=== PATIENT | female | born 1990 | race Caucasian/White ===

== ENCOUNTER 2016-10-03 20:43 | Emergency (ER) | payer OTHER ==
[~2016-10-03] VITALS: Ht 167.6 cm; Wt 70.0 kg
[~2016-10-03 20:43] MED LIST: ALPR0.5T99 PO; AMPH1TAB33 PO; DARV PO; FLUO-1 PO
[2016-10-03 20:53] VITALS: BP 119/70; PULSE 89; RESP 18; TEMP 98.9; O2SAT 100
--- NOTE | 2016-10-03 20:57 | PD ---
HPI Chief Complaint: Medical Clearance Time Seen by Provider: 20:56 Travel History International Travel<30 days: No Contact w/Intl Traveler<30days: No Traveled to known affect area: No History of Present Illness HPI 26 year-old female presents to the emergency department and law enforcement custody for medical clearance. Patient got into an argument and cut her left wrist 3 times. Patient states that she has history of cutting herself as a coping mechanism. Denies suicidal or homicidal ideations. Denies any illicit drug use. She is up-to-date on her tetanus vaccination Has no other symptoms to report. [facility] Past Medical History Anxiety: Yes ?: Not LMP: on depo - states does not get her period? Social History Alcohol Use: Yes (OCCASIONAL) Tobacco Use: Yes (1PPD) Allergies-Medications (Allergen,Severity, Reaction): Coded Allergies: No Known Allergies (Verified , 10/03/16) Reported Meds & Prescriptions Reported Meds & Active Scripts Active No Active Prescriptions or Reported Medications Review of Systems Except as stated in HPI: all other systems reviewed are Neg Physical Exam Narrative GENERAL: Well-nourished female patient in no acute distress SKIN: Focused skin assessment warm/dry. Her 3 superficial lacerations on left anterior wrist, all 4 cm in length. Well approximated. Bleeding is controlled. Multiple scars on the left anterior forearm where patient has cut in the past. HEAD: Atraumatic. Normocephalic. EYES: Pupils equal and round. No scleral icterus. No injection or drainage. ENT: No nasal bleeding or discharge. Mucous membranes pink and moist. NECK: Trachea midline. No JVD. CARDIOVASCULAR: Regular rate and rhythm. No murmur appreciated. RESPIRATORY: No accessory muscle use. Clear to auscultation. Breath sounds equal bilaterally. GASTROINTESTINAL: Abdomen soft, non-tender, nondistended. Hepatic and splenic margins not palpable. MUSCULOSKELETAL: No obvious deformities. No clubbing. No cyanosis. No edema. NEUROLOGICAL: Awake and alert. No obvious cranial nerve deficits. Motor grossly within normal limits. Normal speech. Data Data Last Documented VS Vital Signs Date Time Temp Pulse Resp B/P Pulse Ox O2 Delivery O2 Flow Rate FiO2 10/03/16 20:53 98.9 89 18 119/70 100 Orders Wound Care (10/03/16 20:56) [facility] Medical Decision Making Medical Screen Exam Complete: Yes Emergency Medical Condition: Yes Medical Record Reviewed: Yes Differential Diagnosis Mood disorder versus personality disorder versus adjustment reaction disorder Laceration versus abrasion versus avulsion versus tendon injury Narrative Course 26-year-old female presents to emergency department for evaluation and medical clearance. Patient has 3 superficial lacerations to left wrist. Wounds are cleansed and Steri-Strips applied. Patient is discharged into law enforcement custody at this time. Diagnosis Primary Impression: Adjustment reaction Qualified Code: F43.20 - Adjustment disorder, unspecified type Additional Impression: Laceration of left wrist without complication Qualified Code: S61.512A - Laceration of left wrist without complication, initial encounter Referrals: Primary Care Physician Patient Instructions: General Instructions, Laceration (ED) Additional Instructions: Keep the area clean and dry Follow-up with the primary care provider Tylenol or ibuprofen as directed on the package as needed for pain Return immediately to the emergency department with any acute worsening of symptoms Med/Other Pt SpecificInfo: No Meds Exist/No RX given Scripts No Active Prescriptions or Reported Meds Disposition: [address] LAW ENFORCEMNT Condition: Stable Ammy Moreira Oct 03, 2016 20:56
== END 2016-10-03 22:01 ==
LOC: NEPE 20:43
DX: F43.20 Adjustment disorder, unspecified (principal); S61.512A Laceration without foreign body of left wrist, initial encounter; W45.8XXA Other foreign body or object entering through skin, initial encounter
CPT/HCPCS: 99282